=== PATIENT | female | born 1995 | race Caucasian/White ===

== ENCOUNTER 2017-07-26 01:37 | Emergency (ER) | payer SELFPAY ==
--- NOTE | 2017-07-26 01:47 | EDPHY ---
H & P Time Seen by Provider: 07/26/17 01:39 HPI/ROS: Chief Complaint: Opioid overdose HPI: 21-year-old woman with a history of chronic heroin abuse use heroin tonight. Shortly thereafter her boyfriend found her unresponsive. He called 911 perform CPR. On EMS arrival the patient was minimally responsive with a "thready "pulse. They continued CPR and placed an IO in her right tibia. She received 2 mg of Narcan and woke up immediately. She is now awake and alert. Admits to heroin use but denies other drug use or alcohol use today. Is complaining of some sternal chest pain. No nausea or vomiting. No abdominal pain. ROS: 10 point Review of Systems is negative except as noted in the HPI. PMH: Depression, heroin abuse Social History: Positive smoking, no alcohol, chronic heroin abuse Family History: non-contributory Physical Exam: Gen: Awake, Alert, No Distress HEENT: Nose: no rhinorrhea Eyes: PERRLA, EOMI Mouth: Moist mucosa Neck: Supple, no JVD Chest: Bilateral paraspinal tenderness, no step-offs, no flail segments, lungs clear to auscultation Heart: S1, S2 normal, no murmur Abd: Soft, non-tender, no guarding Back: no CVA tenderness, no midline tenderness Ext: no edema, non-tender, IO in the right tibia Skin: no rash Neuro: CN II-XII intact, Sensation grossly intact, Strength 5/5 in bilateral upper and lower extremities - Medical/Surgical History Hx Asthma: No Hx Chronic Respiratory Disease: No Hx Diabetes: No Hx Cardiac Disease: No Hx Renal Disease: No Hx Cirrhosis: No Hx Alcoholism: No Hx HIV/AIDS: No Hx Splenectomy or Spleen Trauma: No Other PMH: asthma, anxiety Constitutional: Initial Vital Signs Temperature (C) 36.8 C 07/26/17 01:58 Heart Rate 58 L 07/26/17 01:58 Respiratory Rate 14 07/26/17 01:58 Blood Pressure 150/87 H 07/26/17 01:58 O2 Sat (%) 100 07/26/17 01:58 O2 Delivery Mode Room Air O2 (L/minute) 3 Allergies/Adverse Reactions: No Known Allergies Allergy (Verified 07/26/17 01:55) Home Medications: Medication Instructions Recorded CLONAZEPAM 1 mg 07/26/17 GABAPENTIN 300 mg 07/26/17 Ondansetron 8 mg 07/26/17 clonIDINE 0.1 mg 07/26/17 Medical Decision Making ED Course/Re-evaluation: 0530 patient has been observed in the emergency department for 4 hours. She has not required any further Narcan. She is awake and alert maintaining her own airway. She has been cautioned to decrease her opioid use. I will refer her to the arc. She is medically cleared for discharge. Departure - Departure Disposition: Home, Routine, Self-Care Clinical Impression: Opioid overdose Condition: Good Instructions: Opioid Overdose (ED) Additional Instructions: Please try to decrease your opioid use. Contact [facility] for assistance in your substance abuse. Return to the emergency depart for fevers, chills, worsening chest pain, nausea , vomiting, or any other concerns. Referrals: [facility] Detox 24 Hours [Outside] - As per Instructions
[2017-07-26 02:00] VITALS: TEMP 98.2
[2017-07-26 05:46] VITALS: BP 100/66; PULSE 65; RESP 15; O2SAT 99
== END 2017-07-26 05:46 | disposition home or self-care (01) ==
LOC: EDUNIT#
DX: T40.2X1A Poisoning by other opioids, accidental (unintentional), initial encounter (principal); F17.200 Nicotine dependence, unspecified, uncomplicated; J45.909 Unspecified asthma, uncomplicated

== ENCOUNTER 2017-08-13 10:07 | Emergency (ER) | payer OTHER ==
[2017-08-13 10:11] VITALS: O2SAT 95
--- NOTE | 2017-08-13 10:13 | EDPHY ---
H & P HPI/ROS: CHIEF COMPLAINT: Generalized seizure HISTORY OF PRESENT ILLNESS: 21-year-old female with a history of polysubstance abuse presents after a generalized seizure. She has a history of seizures related to benzodiazepine withdrawal. She is currently trying to wean herself off benzodiazepines. Last use of benzodiazepines was yesterday morning. This morning she had a witnessed generalized seizure. She now feels back to normal, except she has a mild headache. REVIEW OF SYSTEMS: Constitutional: No fever, no chills, no recent illness Eyes: No visual changes ENT: No sore throat Respiratory: No cough, no shortness of breath Cardiac: No chest pain Gastrointestinal: No nausea, no vomiting, no abdominal pain Genitourinary: no dysuria Musculoskeletal: No leg pain or swelling Skin: No rash Neurological: no weakness Psychiatric: depression Past Medical/Surgical History: Seizures related to benzodiazepine withdrawal Social History: Polysubstance abuse Smoking Status: Never smoked Physical Exam: General Appearance: Alert, pleasant Eyes: Pupils equal and round, no conjunctival pallor or injection ENT, Mouth: Mucous membranes moist Neck: Normal inspection Respiratory: Lungs are clear to auscultation Cardiovascular: Regular rate and rhythm Gastrointestinal: Abdomen is soft and nontender Neurological: Alert, oriented x3, cranial nerves II through XII intact, motor 5 /5, sensory intact to light touch Skin: Warm and dry, no rash Extremities: Nontender, no pedal edema Psychiatric: Mood and affect normal Constitutional: Initial Vital Signs Temperature (C) 37.1 C 08/13/17 10:09 Heart Rate 103 H 08/13/17 10:09 Respiratory Rate 18 08/13/17 10:09 Blood Pressure 138/78 H 08/13/17 10:09 O2 Sat (%) 95 08/13/17 10:09 O2 Delivery Mode Room Air Allergies/Adverse Reactions: No Known Allergies Allergy (Verified 07/26/17 01:55) Home Medications: Medication Instructions Recorded CLONAZEPAM 1 mg 07/26/17 GABAPENTIN 300 mg 07/26/17 Ondansetron 8 mg 07/26/17 clonIDINE 0.1 mg 07/26/17 Medical Decision Making ED Course/Re-evaluation: This patient presents after a benzodiazepine withdrawal seizure. Blood sugar was normal per EMS. Unable to place an IV in the emergency department. I observed her in the emergency department. She started to feel slightly off, so Ativan 1 mg orally given. After continued observation, she felt much better and she will be discharged home. She will follow up with her primary care physician. She would like to be off benzodiazepines and is aware that she will need to gradually taper off the benzodiazepines. She understands that she cannot drive until she is cleared by a neurologist. Differential Diagnosis: Differential diagnosis includes though it is not limited to status epilepticus, hypoglycemia, intracranial hemorrhage, CVA, benzodiazepine withdrawal, alcohol withdrawal, epilepsy. - Data Points Medications Given: Discontinued Medications Sodium Chloride (Ns) 1,000 mls @ 0 mls/hr IV EDNOW ONE; Wide Open PRN Reason: Protocol Stop: 08/13/17 10:16 Last Admin: 08/13/17 11:19 Dose: Not Given Ibuprofen (Motrin) 600 mg PO EDNOW ONE Stop: 08/13/17 11:10 Last Admin: 08/13/17 11:14 Dose: 600 mg Lorazepam (Ativan) 1 mg PO EDNOW ONE Stop: 08/13/17 11:18 Last Admin: 08/13/17 11:18 Dose: 1 mg Ondansetron HCl (Zofran) 4 mg IVP EDNOW ONE Stop: 08/13/17 11:18 Last Admin: 08/13/17 11:19 Dose: Not Given Ondansetron HCl (Zofran Odt) 4 mg PO EDNOW ONE Stop: 08/13/17 11:22 Last Admin: 08/13/17 11:23 Dose: 4 mg Departure - Departure Disposition: Home, Routine, Self-Care Clinical Impression: Seizure Condition: Good Instructions: Recurrent Seizures in Adults (ED) Additional Instructions: Do not drive until your cleared by a neurologist. Make an appointment to follow-up with your primary care physician. She can help you slowly taper the benzodiazepines. Return for worsening symptoms or any concerns. Referrals: Bernard Hunter MD [Medical Doctor] - As per Instructions (Call to make an appointment.)
[2017-08-13] MEDS ORDERED: NS 1,000 ML IV ONE ×2 (10:15)
[2017-08-13] MEDS ORDERED: IBUPROFEN 600 MG TAB PO ONE ×2 (11:09)
[2017-08-13] MEDS ORDERED: LORazepam 1 MG TAB ONE ×2 (11:16)
[2017-08-13] MEDS ORDERED: LORazepam 1 MG TAB PO ONE ×2 (11:17)
[2017-08-13] MEDS ORDERED: ONDANSETRON DISINTEGRATING 4 MG TAB ONE ×2 (11:17)
[2017-08-13] MEDS ORDERED: ONDANSETRON 4 MG/2 ML VIAL IVP ONE ×2 (11:17)
[2017-08-13] MEDS ORDERED: ONDANSETRON DISINTEGRATING 4 MG TAB PO ONE ×2 (11:21)
[2017-08-13 11:23] VITALS: RESP 16
[2017-08-13 12:07] VITALS: BP 116/74; PULSE 89; TEMP 98.4
== END 2017-08-13 12:12 | disposition home or self-care (01) ==
LOC: EDUNIT#
DX: G40.909 Epilepsy, unspecified, not intractable, without status epilepticus (principal)